=== PATIENT | male | born 1975 | race African-American/Black ===

== ENCOUNTER → 2016-11-24 | Outpatient (CLI) | payer OTHER ==
--- NOTE | 2016-11-24 09:49 | REP ---
Clinical: Right knee pain. Technique: AP, lateral, bilateral oblique and sunrise views of the right knee. Comparison: None. Findings: The patella demonstrates contour irregularity and presumed bipartite appearance versus old trauma along with a marginal spurring, posterior subchondral sclerosis and decreased patellofemoral joint space. The tibial plateau demonstrates subtle increased sclerosis and minimal medial joint space narrowing. There is no evidence for acute fracture dislocation. No definite effusion. Impression: Degenerative changes as described above predominately involving the patella and patellofemoral joint space. Signed by Tez Ruth MD 11/24/2016 09:41 A
== END ==
LOC: M RAD 08:55
PROVIDERS: ATTEND Surgery
DX: M17.11 Unilateral primary osteoarthritis, right knee (principal)